=== PATIENT | male | born 1945 | race Caucasian/White ===

== ENCOUNTER 2018-08-09 10:50 | Inpatient (IN) | payer MEDICARE, OTHER | END 2018-08-23 16:10 | LOC: CICU 2S 08-14 10:47 → MED 3N 08-16 17:53 → ER 10:50 → ICU 2S 12:47 | PROC: B2110ZZ Fluoroscopy of Multiple Coronary Arteries using High Osmolar Contrast (ICD-10-PCS; principal; 2018-08-14 07:47) | PROC: B2150ZZ Fluoroscopy of Left Heart using High Osmolar Contrast (ICD-10-PCS; 2018-08-14 07:47) | PROC: 02100A3 Bypass Coronary Artery, One Artery from Coronary Artery with Autologous Arterial Tissue, Open Approach (ICD-10-PCS; 2018-08-14 07:47) | PROC: 0212099 Bypass Coronary Artery, Three Arteries from Left Internal Mammary with Autologous Venous Tissue, Open Approach (ICD-10-PCS; 2018-08-14 07:47) | PROC: 06BP4ZZ Excision of Right Saphenous Vein, Percutaneous Endoscopic Approach (ICD-10-PCS; 2018-08-14 07:47) | PROC: 5A1935Z Respiratory Ventilation, Less than 24 Consecutive Hours (ICD-10-PCS; 2018-08-14 07:47) | DX: I21.4 Non-ST elevation (NSTEMI) myocardial infarction (principal); I69.854 Hemiplegia and hemiparesis following other cerebrovascular disease affecting left non-dominant side; I25.119 Atherosclerotic heart disease of native coronary artery with unspecified angina pectoris; I10 Essential (primary) hypertension; I25.2 Old myocardial infarction ==